=== PATIENT | male | born 1970 | race Caucasian/White ===

== ENCOUNTER → 2017-07-02 | Outpatient (CLI) | payer MEDICAID, SELFPAY ==
[~2017-07-02] MED LIST: ALBUMIN (HUMAN) 25% 200 ML IV SCH; FURO20TA6 PO; SPIR25TA4 PO
[2017-07-02 12:58] LABS: SPECIMENTYPE,BODY FLUID ASCITES
[2017-07-02 12:59] LABS: APPEARANCE BODY FLUID CLOUDY (CLEAR); COLOR,BODY FLUID YELLOW (LT YELLOW); TOTAL VOLUME,BODY FLUID 100 mL
[2017-07-02 13:00] LABS: BODY FLUID RBC 743 /cu. mm.; BODY FLUID WBC 45 /cu. mm.
[2017-07-02 13:10] LABS: BF LYMPHOCYTE 39 %; BF MESOTHELIAL 49 %; BF MONOCYTE 11 %
== END | disposition home or self-care (01) ==
LOC: RAH 10:00
PROVIDERS: ATTEND Family Medicine
DX: K70.31 Alcoholic cirrhosis of liver with ascites (principal); F17.220 Nicotine dependence, chewing tobacco, uncomplicated; Z98.890 Other specified postprocedural states
CPT/HCPCS: 49083; 87071; 87205; 89051; P9046

== ENCOUNTER → 2017-07-31 | Outpatient (CLI) | payer MEDICAID ==
[~2017-07-31] MED LIST changes: +ALBUMIN (HUMAN) 25% 200 ML IV ONE; -ALBUMIN (HUMAN) 25% 200 ML IV SCH
[2017-07-31 10:33] LABS: INR 1.33 (0.85-1.15); PARTIAL THROMBOPLASTIN TIME 30.5 SEC (26.3-35.5); PROTHROMBIN TIME 13.9 SEC (9.6-11.6)
== END | disposition home or self-care (01) ==
LOC: RAH 09:43
PROVIDERS: ATTEND Family Medicine
DX: R18.8 Other ascites (principal); K74.60 Unspecified cirrhosis of liver
CPT/HCPCS: 36415; 49083; 85610; 85730; P9046

== ENCOUNTER 2023-05-22 11:33 | Emergency (ER) | payer MEDICAID, OTHER ==
[~2023-05-22] VITALS: Ht 167.6 cm; Wt 86.2 kg
[~2023-05-22 11:33] MED LIST changes: -ALBUMIN (HUMAN) 25% 200 ML IV ONE; -SPIR25TA4 PO; +SPIR25TA6 PO
[2023-05-22 12:33] LABS: BASOPHILS # (AUTO) 0.07 K/uL (0.00-0.20); BASOPHILS % (AUTO) 1.5 % (0.0-5.0); EOSINOPHILS # (AUTO) 0.09 K/uL (0.00-0.70); EOSINOPHILS % (AUTO) 1.9 % (0.0-8.0); HEMATOCRIT 39.4 % (42-54); IMMATURE GRANULOCYTE ABSOLUTE 0.01 K/uL (0-1); LYMPHOCYTES # (AUTO) 0.6 K/uL (1.0-4.8); LYMPHOCYTES % (AUTO) 11.6 % (21.0-51.0); MEAN CORPUSCULAR HGB CONC 34.5 g/dL (32.0-36.0); MEAN CORPUSCULAR VOLUME 101.3 fL (79-99); MONOCYTES # (AUTO) 0.8 K/uL (0.1-1.0); MONOCYTES % (AUTO) 16.4 % (3.0-13.0); NEUTROPHILS # (AUTO) 3.3 K/uL (1.8-7.7); NEUTROPHILS % (AUTO) 68.4 % (40.0-77.0); PLATELET COUNT (AUTO) 103 K/uL (130-400); RED BLOOD CELL COUNT(AUTO) 3.89 MIL/uL (4.50-6.20); RED CELL DISTRIBUTION WIDTH 14.6 % (11.0-15.5); WHITE BLOOD COUNT (AUTO) 4.8 K/uL (4.8-10.8)
[2023-05-22 12:40] LABS: ALBUMIN 2.3 g/dL (3.5-5.0); BILIRUBIN,TOTAL 4.3 mg/dL (0.2-1.0); CREATININE 0.9 mg/dL (0.5-1.5); INR 1.36 (0.85-1.15); POTASSIUM 3.5 mmol/L (3.5-5.1); PROTHROMBIN TIME 15.5 SEC (9.6-11.6); TOTAL PROTEIN, SERUM 7.9 g/dL (6.0-8.3)
[2023-05-22 12:41] LABS: PARTIAL THROMBOPLASTIN TIME 30.5 SEC (26.3-35.5)
[2023-05-22 14:11] VITALS: BP 169/99; PULSE 88; RESP 17; O2SAT 100
[2023-05-23] MEDS ORDERED: SPIR25TA6 PO (11:47)
[2023-05-23] MEDS ORDERED: FURO40TA7 PO (11:47)
== END 2023-05-22 14:19 | disposition home or self-care (01) ==
LOC: EDH 11:33
DX: R18.8 Other ascites (principal); Z79.899 Other long term (current) drug therapy
CPT/HCPCS: 36415; 80053; 82140; 85025; 85610; 85730

== ENCOUNTER 2023-05-23 07:07 | Emergency (ER) | payer OTHER ==
[~2023-05-23] VITALS: Ht 165.1 cm; Wt 86.2 kg
[2023-05-23] MEDS ORDERED: ALBUMIN (HUMAN) 25% 200 ML IV SCH (10:00)
[2023-05-23 11:00] VITALS: BP 142/76; PULSE 87; RESP 16; O2SAT 100
[2023-05-23] MEDS ORDERED: SPIR25TA6 PO (11:47)
[2023-05-23] MEDS ORDERED: FURO40TA7 PO (11:47)
== END 2023-05-23 11:59 | disposition home or self-care (01) ==
LOC: EDH 07:07
DX: R18.8 Other ascites (principal); F10.10 Alcohol abuse, uncomplicated; Z79.899 Other long term (current) drug therapy
CPT/HCPCS: 49083; 99285; 96365; P9046; C1729